=== PATIENT | female | born 1975 | race Caucasian/White ===

== ENCOUNTER 2020-01-31 20:41 | Emergency (ER) | payer MEDICAID ==
[2020-01-31] MEDS ORDERED: Take Home: Acetaminophen/HYDROcodone 325-5 MG, 5 Tab Pack PO ONE (21:26)
[2020-01-31] MEDS ORDERED: Take Home: Ondansetron 4 MG Tab.DIS, 2 Tab Pack PO ONE (21:27)
[2020-02-01 01:28] VITALS: BP 142/61; PULSE 84
--- NOTE | 2020-02-01 06:20 | EDM.PDOC ---
ED HPI GENERAL MEDICAL PROBLEM - General Chief Complaint: Flank Pain Stated Complaint: BACK PAIN Time Seen by Provider: 01/31/20 21:23 Source of Information: Reports: Patient History Limitations: Reports: No Limitations - History of Present Illness INITIAL COMMENTS - FREE TEXT/NARRATIVE: Pt. presents to ER with complaints of L sided flank pain. She states that she had lithotripsy performed on her L side earlier this week. She was prescribed a short course of hydrocodone, but states that she is now out. Denies any fever or chills. She states that she is still experiencing some intense L sided flank pain. No hematuria. She complains of nausea and requests something for nausea and vomiting, as this was not prescribed postoperatively. Onset: Today Onset Date: 02/01/20 Quality: Reports: Throbbing Treatments PUBLIC INFORMATION RELATIONS MANAGER: Reports: Other (see below) Other Treatments PUBLIC INFORMATION RELATIONS MANAGER: Hydrocodone Left Flank Pain Pain Score (Numeric/FACES): 8 - Related Data Allergies Allergy/AdvReac Type Severity Reaction Status Date / Time aspirin Allergy Other Verified 02/01/20 01:09 cat dander Allergy Bronchospas Verified 02/01/20 01:09 ms Influenza Virus Vaccines Allergy Hives Verified 02/01/20 01:09 strawberry Allergy Hives Verified 02/01/20 01:09 sulfamethoxazole Allergy Other Verified 02/01/20 01:09 [From Bactrim] trimethoprim [From Bactrim] Allergy Other Verified 02/01/20 01:09 eggs Allergy Hives Uncoded 02/01/20 01:09 Home Meds: Home Meds Amitriptyline [Elavil] 50 mg PO BEDTIME 02/06/18 [History] Calcium Carb/Mag Ox/Zinc Sulf [Wumqyxh-Swpfxwdkp-Ehmz Tablet] 1 tab PO TID 02/06 [History] Carbidopa/Levodopa [Sinemet 25-100 mg Tablet] 1 tab PO QAM 02/06/18 [History] Carbidopa/Levodopa [Sinemet 25-100 mg Tablet] 2 tab PO QPM 02/06/18 [History] Cholecalciferol (Vitamin D3) [Vitamin D3] 2,000 unit PO DAILY 02/06/18 [History] ClonazePAM [KlonoPIN] 3 mg PO BEDTIME 02/06/18 [History] Cyanocobalamin (Vitamin B-12) [Vitamin B-12] 250 mcg PO DAILY 02/06/18 [History] Docusate Sodium [Colace] 300 mg PO BEDTIME 02/06/18 [History] Ferrous Sulfate 325 mg PO BID 02/06/18 [History] Multivitamin [Multivitamins] 1 tab PO DAILY 02/06/18 [History] Omeprazole Magnesium [Prilosec Otc] 20 mg PO BID 02/06/18 [History] Phytonadione [Vitamin K] 100 mcg PO DAILY 02/06/18 [History] SUMAtriptan [Imitrex] 50 mg PO ASDIRECTED PRN 02/06/18 [History] Venlafaxine [Effexor XR] 75 mg PO DAILY 02/06/18 [History] Warfarin [Coumadin] 5 mg PO ASDIRECTED 02/06/18 [History] buPROPion HCl [Wellbutrin Xl] 300 mg PO DAILY 02/06/18 [History] traZODone 100 mg PO BEDTIME 02/06/18 [History] ClonazePAM [KlonoPIN] 0.5 mg PO DAILY PRN 06/25/18 [History] Acetaminophen [Tylenol Extra Strength] 1,000 mg PO Q6H PRN 03/07/19 [History] buPROPion [Wellbutrin SR] 100 mg PO DAILY 03/26/19 [History] tiZANidine [Zanaflex] 4 mg PO TID PRN 30 Days #90 tablet 03/26/19 [Rx] Past Medical History HEENT History: Reports: Impaired Vision Cardiovascular History: Reports: Blood Clots/VTE/DVT, Heart Murmur Respiratory History: Reports: PE Gastrointestinal History: Reports: GERD Genitourinary History: Reports: Renal Calculus, UTI, Recurrent Musculoskeletal History: Reports: Back Pain, Chronic, Other (See Below) Other Musculoskeletal History: Bilateral hip pain Neurological History: Reports: Migraines Psychiatric History: Reports: Anxiety, Depression, Panic Attack Endocrine/Metabolic History: Reports: Obesity/BMI 30+ Hematologic History: Reports: Anticoagulation Therapy Oncologic (Cancer) History: Reports: Uterine Dermatologic History: Reports: Psoriasis - Past Surgical History Head Surgeries/Procedures: Reports: None GI Surgical History: Reports: Bariatric Procedure, Other (See Below) Other GI Surgeries/Procedures: Gastric sleeve then to full gastric bypass Female Surgical History: Reports: Hysterectomy Social & Family History - Family History Cardiac: Reports: Heart Failure, [place] Respiratory: Reports: Sleep Apnea Other GI Family History: obewsity mother, father, sister : Reports: Renal Calculus Psychiatric: Reports: Depression Endocrine/Metabolic: Reports: Diabetes, type II Oncologic: Reports: Ovarian - Tobacco Use Smoking Status *Q: Never Smoker - Recreational Drug Use Recreational Drug Use: No - Living Situation & Occupation Living situation: Reports: Single, with Significant Other (sister) 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.) ED ROS GENERAL - Review of Systems Review Of Systems: See Below Constitutional: Reports: No Symptoms HEENT: Reports: No Symptoms Respiratory: Reports: No Symptoms Cardiovascular: Reports: No Symptoms Endocrine: Reports: No Symptoms GI/Abdominal: Reports: Abdominal Pain : Reports: Flank Pain (L sided) Musculoskeletal: Reports: No Symptoms Skin: Reports: No Symptoms Neurological: Reports: No Symptoms Psychiatric: Reports: No Symptoms Hematologic/Lymphatic: Reports: No Symptoms Immunologic: Reports: No Symptoms ED EXAM, GENERAL - Physical Exam Exam: See Below Exam Limited By: No Limitations General Appearance: Alert, WD/WN, No Apparent Distress Head: Atraumatic, Normocephalic Respiratory/Chest: No Respiratory Distress, Lungs Clear, Normal Breath Sounds, No Accessory Muscle Use GI/Abdominal: Normal Bowel Sounds, Soft, Non-Tender, No Organomegaly, No Distention, No Abnormal Bruit, No Mass, Pelvis Stable Back Exam: Full Range of Motion, CVA Tenderness (L), Other (swelling to L flank gray) Extremities: Normal Inspection, Normal Range of Motion, Non-Tender, No Pedal Edema, Normal Capillary Refill Course - Vital Signs Last Recorded V/S: Last Vital Signs Temp 36.6 C 01/31/20 21:20 Pulse 84 01/31/20 21:20 Resp 16 01/31/20 21:20 BP 142/61 H 01/31/20 21:20 Pulse Ox 96 01/31/20 21:20 - Orders/Labs/Meds Meds: Medications Discontinued Medications Generic Name Dose Route Start Last Admin Trade Name Freq PRN Reason Stop Dose Admin Hydrocodone Bitart/Acetaminophen 1 packet 01/31/20 21:26 01/31/20 21:29 Take Home: Acetam/Hydrocodon 325-5 Mg, 5 Pack PO 01/31/20 21:27 1 packet ONETIME ONE Administration Ondansetron HCl 1 packet 01/31/20 21:27 01/31/20 21:29 Take Home: Ondansetron Odt 4 Mg, 2 Tab Pack PO 01/31/20 21:28 1 packet ONETIME ONE Administration Departure - Departure Time of Disposition: 21:35 Disposition: Home, Self-Care 01 Clinical Impression: Post-op pain - Discharge Information Instructions: Acetaminophen; Hydrocodone tablets or capsules, Ondansetron oral dissolving tablet Referrals: Connie Root MD [Primary Care Provider] - Forms: ED Department Discharge Additional Instructions: [place] 5/325mg 1 tab every 6 hours as needed for pain Zofran 4mg ODT 1 tab every 6 hours Drink lots of water Recheck in clinic next week Sepsis Event Note - Evaluation Sepsis Screening Result: No Definite Risk - Focused Exam Vital Signs: Vital Signs Temp Pulse Resp BP Pulse Ox 01/31/20 21:20 36.6 C 84 16 142/61 H 96 Date Exam was Performed: 02/01/20 Time Exam was Performed: 06:15 - Assessment/Plan Plan: [place] 5/325mg 1 tab every 6 hours as needed for pain Zofran 4mg ODT 1 tab every 6 hours Drink lots of water Recheck in clinic next week
== END 2020-01-31 21:35 | disposition home or self-care (01) ==
LOC: VM.ED 20:41
DX: G89.18 Other acute postprocedural pain (principal); R10.9 Unspecified abdominal pain; Z87.442 Personal history of urinary calculi; Z86.718 Personal history of other venous thrombosis and embolism; K21.9 Gastro-esophageal reflux disease without esophagitis; Z86.711 Personal history of pulmonary embolism; F41.0 Panic disorder [episodic paroxysmal anxiety]; F32.9 Major depressive disorder, single episode, unspecified; Z88.8 Allergy status to other drugs, medicaments and biological substances; Z91.012 Allergy to eggs; Z88.2 Allergy status to sulfonamides; Z88.7 Allergy status to serum and vaccine; Z91.048 Other nonmedicinal substance allergy status; Z91.018 Allergy to other foods; Z79.899 Other long term (current) drug therapy
CPT/HCPCS: 99283; A9270-GY

== ENCOUNTER 2020-05-02 15:06 | Emergency (ER) | payer MEDICAID ==
[2020-05-02] MEDS ORDERED: diphenhydrAMINE 50 MG/ML SDV IVPUSH ONE (15:46)
[2020-05-02] MEDS ORDERED: Ketorolac 30 MG/ML SDV IVPUSH ONE (15:46)
[2020-05-02] MEDS ORDERED: Sodium Chloride 0.9% 10 ML Syringe FLUSH PRN (15:46)
[2020-05-02] MEDS ORDERED: Lactated Ringers 1,000 ML IV ONE (15:46)
--- NOTE | 2020-05-02 15:52 | EDM.PDOC ---
ED HPI GENERAL MEDICAL PROBLEM - General Chief Complaint: Back Pain or Injury Stated Complaint: KIDNEY PAIN Time Seen by Provider: 05/02/20 15:40 Source of Information: Reports: Patient History Limitations: Reports: No Limitations - History of Present Illness INITIAL COMMENTS - FREE TEXT/NARRATIVE: Patient comes emergency department today with complaints of right flank pain. This patient for the last 3 days has had intermittent achiness to her right flank. This morning when she woke up she had severe shooting pain in her right flank that was so severe that took her to the ground. She has been nauseated without vomiting. No fever no chills. No abdominal pain. No gross hematuria no dysuria or urinary frequency. No recent falls or trauma to her back. She does report that she has had recurrent multiple kidney stones in the past that she is received lithotripsy for. She relates that it feels just like her kidney stones in the past. No abdominal pain. No diarrhea or constipation. No chest pain no shortness of breath or difficulty breathing. Right Back Pain Score (Numeric/FACES): 9 - Related Data Allergies Allergy/AdvReac Type Severity Reaction Status Date / Time aspirin Allergy Other Verified 05/02/20 15:15 cat dander Allergy Bronchospas Verified 05/02/20 15:15 ms Influenza Virus Vaccines Allergy Hives Verified 05/02/20 15:15 strawberry Allergy Hives Verified 05/02/20 15:15 sulfamethoxazole Allergy Other Verified 05/02/20 15:15 [From Bactrim] trimethoprim [From Bactrim] Allergy Other Verified 05/02/20 15:15 eggs Allergy Hives Uncoded 02/01/20 01:09 Home Meds: Home Meds Amitriptyline [Elavil] 50 mg PO BEDTIME 02/06/18 [History] Calcium Carb/Mag Ox/Zinc Sulf [Hjjnddq-Fxthcrwwg-Jisp Tablet] 1 tab PO TID 02/06 [History] Carbidopa/Levodopa [Sinemet 25-100 mg Tablet] 1 tab PO QAM 02/06/18 [History] Carbidopa/Levodopa [Sinemet 25-100 mg Tablet] 2 tab PO QPM 02/06/18 [History] Cholecalciferol (Vitamin D3) [Vitamin D3] 2,000 unit PO DAILY 02/06/18 [History] ClonazePAM [KlonoPIN] 3 mg PO BEDTIME 02/06/18 [History] Cyanocobalamin (Vitamin B-12) [Vitamin B-12] 250 mcg PO DAILY 02/06/18 [History] Docusate Sodium [Colace] 300 mg PO BEDTIME 02/06/18 [History] Ferrous Sulfate 325 mg PO BID 02/06/18 [History] Multivitamin [Multivitamins] 1 tab PO DAILY 02/06/18 [History] Omeprazole Magnesium [Prilosec Otc] 20 mg PO BID 02/06/18 [History] Phytonadione [Vitamin K] 100 mcg PO DAILY 02/06/18 [History] SUMAtriptan [Imitrex] 50 mg PO ASDIRECTED PRN 02/06/18 [History] Venlafaxine [Effexor XR] 75 mg PO DAILY 02/06/18 [History] Warfarin [Coumadin] 5 mg PO ASDIRECTED 02/06/18 [History] buPROPion HCL [Wellbutrin Xl] 300 mg PO DAILY 02/06/18 [History] traZODone 100 mg PO BEDTIME 02/06/18 [History] ClonazePAM [KlonoPIN] 0.5 mg PO DAILY PRN 06/25/18 [History] Acetaminophen [Tylenol Extra Strength] 1,000 mg PO Q6H PRN 03/07/19 [History] buPROPion [Wellbutrin SR] 100 mg PO DAILY 03/26/19 [History] tiZANidine [Zanaflex] 4 mg PO TID PRN 30 Days #90 tablet 03/19/20 [Rx] Hydrocodone/Acetaminophen [[place] 5-325 Tablet] 1 each PO Q6H PRN #10 tablet 05/16 [Rx] Past Medical History HEENT History: Reports: Impaired Vision Cardiovascular History: Reports: Blood Clots/VTE/DVT, Heart Murmur Respiratory History: Reports: PE Gastrointestinal History: Reports: GERD Genitourinary History: Reports: Renal Calculus, UTI, Recurrent Other Genitourinary History: Recent UTI due to renal calculous Musculoskeletal History: Reports: Back Pain, Chronic, Other (See Below) Other Musculoskeletal History: Bilateral hip pain Neurological History: Reports: Migraines Psychiatric History: Reports: Anxiety, Depression, Panic Attack Endocrine/Metabolic History: Reports: Obesity/BMI 30+ Hematologic History: Reports: Anticoagulation Therapy Oncologic (Cancer) History: Reports: Uterine Dermatologic History: Reports: Psoriasis - Past Surgical History Head Surgeries/Procedures: Reports: None GI Surgical History: Reports: Bariatric Procedure, Other (See Below) Other GI Surgeries/Procedures: Gastric sleeve then to full gastric bypass Female Surgical History: Reports: Hysterectomy Social & Family History - Family History Cardiac: Reports: Heart Failure, [place] Respiratory: Reports: Sleep Apnea Other GI Family History: obewsity mother, father, sister : Reports: Renal Calculus Psychiatric: Reports: Depression Endocrine/Metabolic: Reports: Diabetes, type II Oncologic: Reports: Ovarian - Tobacco Use Smoking Status *Q: Never Smoker - Recreational Drug Use Recreational Drug Use: No - Living Situation & Occupation Living situation: Reports: Single, with Significant Other (sister) 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 ED EXAM,LOWER BACK PAIN/INJURY - Physical Exam Exam: See Below Exam Limited By: No Limitations General Appearance: Alert, WD/WN, No Apparent Distress, Obese Eye Exam: Bilateral Eye: EOMI Ears: Normal External Exam, Normal TMs Nose: Normal Inspection Throat/Mouth: Normal Inspection, Normal Lips, Normal Oropharynx Head: Atraumatic, Normocephalic Neck: Normal Inspection, Supple Respiratory/Chest: No Respiratory Distress, Lungs Clear, Normal Breath Sounds, No Accessory Muscle Use Cardiovascular: Normal Peripheral Pulses, Regular Rate, Rhythm GI/Abdominal: Normal Bowel Sounds, Soft, Non-Tender, No Organomegaly (Female) Exam: Deferred Rectal (Female) Exam: Deferred Back Exam: Full Range of Motion, CVA Tenderness (R). No: CVA Tenderness (L) Extremities: Normal Inspection, Normal Range of Motion, Normal Capillary Refill Neurological: Alert, Normal Mood/Affect Psychiatric: Normal Affect, Normal Mood Skin Exam: Warm, Dry, Intact, Normal Color, No Rash Course - Vital Signs Last Recorded V/S: Last Vital Signs Temp 36.1 C 05/02/20 15:24 Pulse 80 05/02/20 16:58 Resp 18 05/02/20 16:58 BP 120/62 05/02/20 16:58 Pulse Ox 97 05/02/20 16:58 - Orders/Labs/Meds Orders: Active Orders 24 hr Category Date Time Status CULTURE URINE [RM] Stat Lab 05/02/20 15:27 Received Acetaminophen/oxyCODONE [Take Home: Acetamin/oxyCODON Med 05/02/20 17:51 Once 325-5 MG, 5 Pack] 1 packet PO ONETIME ONE Morphine Med 05/02/20 17:51 Once 4 mg IVPUSH ONETIME ONE Sodium Chloride 0.9% [Saline Flush] Med 05/02/20 15:46 Active 10 ml FLUSH ASDIRECTED PRN Peripheral IV Insertion Adult [OM.PC] Stat Oth 05/02/20 15:45 Ordered Medication Orders Sodium Chloride (Saline Flush) 10 ml FLUSH ASDIRECTED PRN PRN Reason: Keep Vein Open Last Admin: 05/02/20 16:15 Dose: 10 ml Labs: Laboratory Tests 05/02/20 05/02/20 05/02/20 Range/Units 15:27 16:20 16:20 WBC 8.2 (4.0-10.0) x10^3/uL RBC 4.51 (4.00-5.50) x10^6/uL Hgb 12.5 (12.0-16.0) g/dL Hct 39.5 (33.0-47.0) % MCV 87.6 (78.0-93.0) fL MCH 27.7 (26.0-32.0) pg MCHC 31.6 L (32.0-36.0) g/dL RDW Coeff of Jose 14.6 (10.0-15.0) % Plt Count 288 (130-400) x10^3/uL Neut % (Auto) 59.1 (50.0-80.0) % Lymph % (Auto) 32.1 (25.0-50.0) % Winston % (Auto) 6.7 (2.0-11.0) % Eos % (Auto) 1.6 (0.0-4.0) % Baso % (Auto) 0.5 (0.2-1.2) % Sodium 144 (136-145) mmol/L Potassium 4.5 (3.5-5.1) mmol/L Chloride 108 H (98-107) mmol/L Carbon Dioxide 27 (21-32) mmol/L Anion Gap 13.5 (10-20) mmol/L BUN 20 H (7-18) mg/dL Creatinine 0.9 (0.55-1.02) mg/dL Est Cr Clr Drug Dosing 69.60 mL/min Estimated GFR (MDRD) > 60 Glucose 86 (74-106) mg/dL Calcium 8.6 (8.5-10.1) mg/dL Corrected Calcium 8.92 (8.5-10.1) mg/dL Total Bilirubin 0.2 (0.2-1.0) mg/dL AST 21 (15-37) U/L ALT 27 (14-59) U/L Alkaline Phosphatase 77 (46-116) U/L Total Protein 7.3 (6.4-8.2) g/dL Albumin 3.6 (3.4-5.0) g/dL Globulin 3.7 Albumin/Globulin Ratio 0.97 Urine Color Yellow (YELLOW) Urine Appearance Turbid H (CLEAR) Urine pH 5.5 (5.0-8.0) Ur Specific [place] >=1.030 Urine Protein Negative (NEGATIVE) mg/dL Urine Glucose (UA) Negative (NEGATIVE) mg/dL Urine Ketones Negative (NEGATIVE) mg/dL Urine Occult Blood Large H (NEGATIVE) Urine Nitrite Negative (NEGATIVE) Urine Bilirubin Negative (NEGATIVE) Urine Urobilinogen 0.2 (0.2) EU/dL Ur Leukocyte Esterase Trace H (NEGATIVE) U Hyaline Cast (Auto) Few Urine RBC Semi-packed H (NOT SEEN) /HPF Urine WBC 0-5 (NOT SEEN) /HPF Ur Squamous Epith Cells Moderate H (NEGATIVE) /HPF Urine Bacteria Few H (NEGATIVE) /HPF Granular Casts (Auto) Rare Urine Mucus Moderate H (NEGATIVE) /LPF Meds: Medications Generic Name Dose Route Start Last Admin Trade Name Freq PRN Reason Stop Dose Admin Sodium Chloride 10 ml 05/02/20 15:46 05/02/20 16:15 Saline Flush FLUSH 10 ml ASDIRECTED PRN Administration Keep Vein Open Discontinued Medications Generic Name Dose Route Start Last Admin Trade Name Freq PRN Reason Stop Dose Admin Diphenhydramine HCl 25 mg 05/02/20 15:46 05/02/20 16:12 Benadryl IVPUSH 05/02/20 15:47 25 mg ONETIME ONE Administration Lactated Ringer's 1,000 mls @ 999 mls/hr 05/02/20 15:46 05/02/20 16:11 Ringers, Lactated IV 05/02/20 16:46 999 mls/hr ONETIME ONE Administration Ketorolac Tromethamine 30 mg 05/02/20 15:46 05/02/20 16:20 Toradol IVPUSH 05/02/20 15:47 30 mg ONETIME ONE Administration Orphenadrine Citrate 60 mg 05/02/20 15:46 05/02/20 16:16 Norflex IV 05/02/20 15:47 60 mg NOW STA Administration - Radiology Interpretation Free Text/Narrative:: CT scan abdomen pelvis without contrast per radiology shows bilateral nonobstructing renal calculi. Numerous bilateral nonobstructing renal calculi. Largest is up to 4 to 5 mm and located in the left. No significant change from prior examination. No ureteral calculi or evidence of urinary tract obstruction. - Re-Assessments/Exams Free Text/Narrative Re-Assessment/Exam: 05/02/20 15:51 IV LR 1 liter wide open Ketorolac 30mg IV Benadryl 25mg IVP Norflex 60mg IV CT abd pelvis without contrast looking for a stone. Her urine is packed with RBCs. 05/02/20 18:00 Patient's pain was much improved after the above. I reviewed the CT scan showing the reoccurrence of kidney stones bilaterally thought the evidence of ureteral calculi or obstructing stone. We will have her contact her urologist on Monday for follow-up his CT scan is already been sent. Discharge directions as below are explained to the patient. She was comfortable with this plan and her questions are answered. Departure - Departure Time of Disposition: 17:52 Disposition: Home, Self-Care 01 Clinical Impression: Nephrolithiasis - Discharge Information Instructions: Renal Colic, [id number], Kidney Stones, [id number]-[id number], Pain Medicine Instructions, [id number] Forms: ED Department Discharge Additional Instructions: Try to really push fluids to help with treatment and prevention of the stones as well. Tylenol and or Ibuprofen as needed for pain. Contact Dr. Mariscal on monday and let him know about the reoccurrence of the stones. I did send the CT scan for his review as well. If pain not controlled with above. [place], 1 tablet every 6hrs as needed for pain. Caution sedation. Starter pack of 5 sent home from the ED and RX to [facility] electronically. Return to the ED if new or worsening symptoms. Sepsis Event Note - Evaluation Sepsis Screening Result: No Definite Risk - Focused Exam Vital Signs: Vital Signs Temp Pulse Resp BP Pulse Ox 05/02/20 16:58 80 18 120/62 97 05/02/20 15:24 36.1 C 85 16 149/80 H 99 Date Exam was Performed: 05/02/20 Time Exam was Performed: 17:52 - My Orders Last 24 Hours: My Active Orders 05/02/20 15:27 CULTURE URINE [RM] Stat 05/02/20 15:45 Peripheral IV Insertion Adult [OM.PC] Stat 05/02/20 15:46 Sodium Chloride 0.9% [Saline Flush] 10 ml FLUSH ASDIRECTED PRN 05/02/20 17:51 Acetaminophen/oxyCODONE [Take Home: Acetamin/oxyCODON 325-5 MG, 5 Pack] 1 packet PO ONETIME ONE Morphine 4 mg IVPUSH ONETIME ONE - Assessment/Plan Last 24 Hours: My Active Orders 05/02/20 15:27 CULTURE URINE [RM] Stat 05/02/20 15:45 Peripheral IV Insertion Adult [OM.PC] Stat 05/02/20 15:46 Sodium Chloride 0.9% [Saline Flush] 10 ml FLUSH ASDIRECTED PRN 05/02/20 17:51 Acetaminophen/oxyCODONE [Take Home: Acetamin/oxyCODON 325-5 MG, 5 Pack] 1 packet PO ONETIME ONE Morphine 4 mg IVPUSH ONETIME ONE Assessment:: Bilateral nephrolithiasis. Recurrent kidney stones. Plan: Try to really push fluids to help with treatment and prevention of the stones as well. Tylenol and or Ibuprofen as needed for pain. Contact Dr. Mariscal on monday and let him know about the reoccurrence of the stones. I did send the CT scan for his review as well. If pain not controlled with above. [place], 1 tablet every 6hrs as needed for pain. Caution sedation. Starter pack of 5 sent home from the ED and RX to [facility] electronically. Return to the ED if new or worsening symptoms.
[2020-05-02 17:11] LABS: ANION GAP 13.5 mmol/L (10-20); CHLORIDE,CL 108 mmol/L (98-107); SODIUM,NA 144 mmol/L (136-145)
--- NOTE | 2020-05-02 17:44 | CT ---
[id number] CT/CT Abdomen Pelvis WO IV EXAM: CT Abdomen Pelvis WO IV CLINICAL DATA: FLANK PAIN, HEMATURIA. COMPARISON STUDY: January 02, 2020. FINDINGS: Liver demonstrates changes of diffuse steatosis. Gallbladder is distended but otherwise radiographically unremarkable. Common bile duct appears normal in caliber. Pancreas, spleen, and adrenal glands are unremarkable. Numerous bilateral nonobstructing renal calculi. Largest measures up to 4-5 mm and is located on the left. No significant change from the prior examination. No ureteral calculi or evidence of urinary tract obstruction. Urinary bladder is decompressed but otherwise unremarkable. Uterus is been resected. Adnexal regions are unremarkable. Postsurgical change from what appears to be gastric bypass. No small bowel obstruction or inflammation. No colitis or diverticulitis. Spondylosis, including advanced L5-S1 degenerative disc disease. IMPRESSION: Bilateral nonobstructing renal calculi. No ureteral calculi or evidence of urinary tract obstruction. Urinary bladder is unremarkable. Other chronic findings are described above. Kevin Schwartz MD 05/02/20 [id number] Thank you for allowing us to participate in the care of your patient.
[2020-05-02] MEDS ORDERED: Take Home: Acetaminophen/oxyCODONE 325-5 MG, 5 Tab Pack PO ONE (17:51)
[2020-05-02] MEDS ORDERED: Morphine 4 MG/ML Syringe IVPUSH ONE (17:51)
[2020-05-02 18:20] VITALS: BP 126/66; PULSE 70
== END 2020-05-02 18:20 | disposition home or self-care (01) ==
LOC: VM.ED 15:06
DX: N20.0 Calculus of kidney (principal); K21.9 Gastro-esophageal reflux disease without esophagitis; F41.0 Panic disorder [episodic paroxysmal anxiety]; F32.9 Major depressive disorder, single episode, unspecified; E66.9 Obesity, unspecified; Z68.43 Body mass index [BMI] 50.0-59.9, adult; Z88.6 Allergy status to analgesic agent; Z88.7 Allergy status to serum and vaccine; Z88.2 Allergy status to sulfonamides; Z91.018 Allergy to other foods; Z91.048 Other nonmedicinal substance allergy status; Z88.1 Allergy status to other antibiotic agents; Z91.012 Allergy to eggs; Z79.899 Other long term (current) drug therapy; Z86.711 Personal history of pulmonary embolism
CPT/HCPCS: 74176; 80053; 81001; 85025; 87086; 96374; 96375; 99284-25; A9270-GY; J1200; J1885; J2270; J2360; J7120

== ENCOUNTER 2021-02-12 09:03 | Day surgery (SDC) | payer MEDICAID ==
[~2021-02-12 09:03] MED LIST: Bupivacaine 0.25%/EPINEPHrine 1:200,000 30 ML SDV ONE; Lactated Ringers 1,000 ML IV SCH; Sodium Chloride 0.9% 10 ML Syringe FLUSH PRN
[2021-02-12] MEDS ORDERED: fentaNYL 100 MCG/2 ML SDV ONE (09:36)
[2021-02-12] MEDS ORDERED: Propofol 200 MG/20 ML SDV ONE ×2 (09:36→10:53)
[2021-02-12] MEDS ORDERED: Bupivacaine 0.25%/EPINEPHrine 1:200,000 30 ML SDV INJECT ONE ×2 (10:45)
[2021-02-12 11:41] VITALS: BP 125/69; PULSE 68
[2021-02-12] MEDS ORDERED: Acetaminophen 500 MG Tab PO PRN (11:43)
--- NOTE | 2021-02-12 12:30 | OR ---
PREOPERATIVE DIAGNOSIS: Left abdominal wall soft tissue mass. POSTOPERATIVE DIAGNOSIS: Left abdominal wall soft tissue cyst, 7.5 cm in greatest dimension. ANESTHESIA: MAC anesthesia. COMPLICATIONS: None. BLOOD LOSS: Minimal. FINDINGS: There was a subcutaneous cyst in the area in question which was excised. The size of specimen was measured at 7.5 cm. INDICATION FOR PROCEDURE: Ms. Stone is a 45-year-old female who has had a painful area on her left anterior abdominal wall for some time now. On exam, there was a subtle firmness there. However, it was really not clear if she had a little lipoma here or what might be causing her issues. I did discuss with her that it was unclear if excision of this area would yield a meaningful reduction in her symptoms. However, she was distressed by this discomfort and wanted to proceed understanding these risks. DETAILS OF PROCEDURE: Informed consent was obtained. The patient was brought to the operating room, placed supine on the operating table. MAC anesthesia was induced by Anesthesia colleagues. She was prepped and draped in the usual fashion. Local anesthetic was infiltrated and then an incision was made over the area in question. We dissected out this area and actually I had anticipated this was going to be a soft tissue mass. However, during our dissection, we actually entered a cyst and had return of some dark yellow granular material. It did not appear purulent or infected, so we put a hemostat into this cyst and could see that it extended down several centimeters deep into the tissue. We used this as a guide and we excised it in its entirety without any additional violation of the cyst. This was passed off for pathology. The wound was copiously irrigated with saline and the subcutaneous site was closed with a 3-0 Vicryl. We placed several 3-0 Vicryl deep dermal sutures and then closed the skin with a running 4-0 Vicryl subcuticular stitch. The area was dressed with Dermabond. The patient tolerated the procedure well and was awoken from anesthesia by Anesthesia colleagues without incident. I will send a letter in the mail with the pathology report and she can call me with any questions or concerns about her incision. RKM: 02/12/2021 11:16:05 MODL: 02/12/2021 11:47:42 /[id number]
--- NOTE | 2021-02-18 08:06 | LETTER ---
02/16/2021 RE: MARY MARY : 1975 Mary Mary [address] [place] [phone] Dear Ms. Mary: I am writing to inform you of the pathology result from your recent abdominal wall mass excision. The pathology was consistent with a longstanding cyst caused by hematoma. It may be that this was from a Lovenox shot some time ago or some trauma that caused a little bit of bleeding. There was no evidence of any cancer or anything more concerning. You do not need any additional followup for this. Please let me know if you have any questions or concerns about your incision. Warmest regards,
== END 2021-02-12 12:15 | disposition home or self-care (01) ==
LOC: VM.SDS 09:03
PROVIDERS: ATTEND Student in an Organized Health Care Education/Training Program
DX: L72.8 Other follicular cysts of the skin and subcutaneous tissue (principal); E66.9 Obesity, unspecified; Z68.43 Body mass index [BMI] 50.0-59.9, adult; G47.30 Sleep apnea, unspecified; Z01.812 Encounter for preprocedural laboratory examination; Z20.822 Contact with and (suspected) exposure to COVID-19; Z88.2 Allergy status to sulfonamides; Z88.7 Allergy status to serum and vaccine; Z88.8 Allergy status to other drugs, medicaments and biological substances; Z91.012 Allergy to eggs; Z91.018 Allergy to other foods; Z91.09 Other allergy status, other than to drugs and biological substances; Z79.899 Other long term (current) drug therapy; Z98.84 Bariatric surgery status; Z98.890 Other specified postprocedural states
CPT/HCPCS: 00400; 36415; 85610; A9270-GY; J2704; J3010; J7120; U0002

== ENCOUNTER 2021-02-13 18:15 | Emergency (ER) | payer MEDICAID ==
[2021-02-13] MEDS ORDERED: Morphine 2 MG/ML SYRINGE IVPUSH ONE (19:49)
[2021-02-13 20:20] VITALS: BP 131/51; PULSE 90
[2021-02-13 20:27] LABS: CHLORIDE,CL 106 mmol/L (98-107); SODIUM,NA 142 mmol/L (136-145)
[2021-02-13 20:29] LABS: ANION GAP 11.9 mmol/L (5-15)
[2021-02-13] MEDS ORDERED: Cephalexin 500 MG Cap PO ONE (20:40)
[2021-02-13] MEDS ORDERED: Take Home: traMADol 50 MG, 4 Tab Pack PO ONE (20:41)
--- NOTE | 2021-02-13 20:49 | EDM.PDOC ---
ED HPI GENERAL MEDICAL PROBLEM - General Chief Complaint: Abdominal Pain Stated Complaint: PAIN/POST SURGERY Time Seen by Provider: 02/13/21 19:30 Source of Information: Reports: Patient, Family, RN, RN Notes Reviewed History Limitations: Reports: No Limitations - History of Present Illness INITIAL COMMENTS - FREE TEXT/NARRATIVE: Patient is a 45-year-old female who presents to ER with her sister with complaint of severe pain to an incisional wound on her abdomen. Patient states on Monday (yesterday) patient had a cyst removed, what she calls a "mass and ". Patient states the pain has progressively been increasing since yesterday. She has been taking Tylenol for pain and this is not helping. Admits to chills and nausea, some shortness of breath as she feels it is difficult to take a deep breathe with the pain. Denies fever, vomiting, diarrhea, chest pains. Patient states she was tested on Monday for Covid, has not had any Covid symptoms, has not been vaccinated. Patient rates pain 08/06. Onset: Today, Gradual Treatments QUALITY ASSOCIATE: Reports: Acetaminophen Left Abdominal Pain Score (Numeric/FACES): 9 - Related Data Allergies Allergy/AdvReac Type Severity Reaction Status Date / Time aspirin Allergy Other Verified 02/12/21 10:08 cat dander Allergy Bronchospas Verified 02/12/21 10:08 ms Influenza Virus Vaccines Allergy Hives Verified 02/12/21 10:08 strawberry Allergy Hives Verified 02/12/21 10:08 sulfamethoxazole Allergy Other Verified 02/12/21 10:08 [From Bactrim] trimethoprim [From Bactrim] Allergy Other Verified 02/12/21 10:08 eggs Allergy Hives Uncoded 02/12/21 10:08 Home Meds: Home Meds Amitriptyline [Elavil] 50 mg PO BEDTIME 02/06/18 [History] Calcium Carb/Mag Ox/Zinc Sulf [Yakyyat-Mvtaxukpg-Aiwu Tablet] 1 tab PO TID 02/06/18 [History] Carbidopa/Levodopa [Sinemet 25-100 mg Tablet] 1 tab PO QAM 02/06/18 [History] Carbidopa/Levodopa [Sinemet 25-100 mg Tablet] 2 tab PO QPM 02/06/18 [History] Cholecalciferol (Vitamin D3) [Vitamin D3] 2,000 unit PO DAILY 02/06/18 [History] ClonazePAM [KlonoPIN] 3 mg PO BEDTIME 02/06/18 [History] Cyanocobalamin (Vitamin B-12) [Vitamin B-12] 250 mcg PO DAILY 02/06/18 [History] Docusate Sodium [Colace] 300 mg PO BEDTIME 02/06/18 [History] Ferrous Sulfate 325 mg PO BID 02/06/18 [History] Multivitamin [Multivitamins] 1 tab PO DAILY 02/06/18 [History] Omeprazole Magnesium [Prilosec Otc] 20 mg PO BID 02/06/18 [History] Phytonadione [Vitamin K] 100 mcg PO DAILY 02/06/18 [History] SUMAtriptan [Imitrex] 50 mg PO ASDIRECTED PRN 02/06/18 [History] Venlafaxine [Effexor XR] 75 mg PO DAILY 02/06/18 [History] Warfarin [Coumadin] 5 mg PO ASDIRECTED 02/06/18 [History] traZODone 100 mg PO BEDTIME 02/06/18 [History] ClonazePAM [KlonoPIN] 0.5 mg PO DAILY PRN 06/25/18 [History] Acetaminophen [Tylenol Extra Strength] 1,000 mg PO Q6H PRN 03/07/19 [History] tiZANidine [Zanaflex] 4 mg PO TID PRN 30 Days #90 tablet 11/23/20 [Rx] Acetaminophen/Codeine [Tylenol with Codeine No.3 300MG/30MG] 1 tab PO Q4H PRN 02/04/21 [History] Acetaminophen/Pyrilamine/Caff [Midol Caplet] 1 each PO DAILY PRN 02/04/21 [History] Acetaminophen/Codeine [Tylenol with Codeine No.3 300MG/30MG] 1 tab PO Q4H PRN 5 Days #20 tab 02/05/21 [Rx] Past Medical History HEENT History: Reports: Impaired Vision Cardiovascular History: Reports: Blood Clots/VTE/DVT, Heart Murmur Respiratory History: Reports: PE Gastrointestinal History: Reports: GERD Genitourinary History: Reports: Renal Calculus, UTI, Recurrent Other Genitourinary History: Recent UTI due to renal calculous Musculoskeletal History: Reports: Back Pain, Chronic, Other (See Below) Other Musculoskeletal History: Bilateral hip pain Neurological History: Reports: Migraines Psychiatric History: Reports: Anxiety, Depression, Panic Attack Endocrine/Metabolic History: Reports: Obesity/BMI 30+ Hematologic History: Reports: Anticoagulation Therapy Oncologic (Cancer) History: Reports: Uterine Dermatologic History: Reports: Psoriasis - Past Surgical History Head Surgeries/Procedures: Reports: None GI Surgical History: Reports: Bariatric Procedure, Other (See Below) Other GI Surgeries/Procedures: Gastric sleeve then to full gastric bypass Female Surgical History: Reports: Hysterectomy Social & Family History - Family History Family Medical History: No Pertinent Family History Cardiac: Reports: Heart Failure, [place] Respiratory: Reports: Sleep Apnea Other GI Family History: obewsity mother, father, sister : Reports: Renal Calculus Psychiatric: Reports: Depression Endocrine/Metabolic: Reports: Diabetes, type II Oncologic: Reports: Ovarian - Tobacco Use Tobacco Use Status *Q: Never Tobacco User Second Hand Smoke Exposure: No - Recreational Drug Use Recreational Drug Use: No - Living Situation & Occupation Living situation: Reports: Single, with Significant Other (sister) 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 ED EXAM, SKIN/RASH Exam: See Below Exam Limited By: No Limitations General Appearance: Alert, WD/WN, No Apparent Distress, Obese Eye Exam: Bilateral Eye: EOMI, Normal Inspection Ears: Normal External Exam, Hearing Grossly Normal Nose: Normal Inspection Throat/Mouth: Normal Inspection, Normal Voice, No Airway Compromise Head: Atraumatic, Normocephalic Neck: Normal Inspection, Supple, Non-Tender, Full Range of Motion Respiratory/Chest: No Respiratory Distress, Lungs Clear, Normal Breath Sounds, No Accessory Muscle Use, Chest Non-Tender Cardiovascular: Normal Peripheral Pulses, Regular Rate, Rhythm, No Edema, No Gallop, No JVD, No Murmur, No Rub Peripheral Pulses: 2+: Radial (L), Radial (R) GI/Abdominal: Normal Bowel Sounds, Soft, Tender (at incision site) (Female) Exam: Deferred Rectal (Female) Exam: Deferred Back Exam: Normal Inspection, Full Range of Motion, NT Extremities: Normal Inspection, Normal Range of Motion, Non-Tender, No Pedal Edema, Normal Capillary Refill Neurological: Alert, Oriented, CN II-XII Intact, Normal Cognition, Normal Gait, Normal Reflexes, No Motor/Sensory Deficits Psychiatric: Normal Affect, Normal Mood Skin: Warm, Dry, Erythema, Increased Warmth, Wound/Incision (incision site approx 4cm, with erythema, orange peel appearance around the wound) Location, Skin: Abdomen Characteristics: Erythematous Associated features: Warmth, Tenderness, Swelling, Inflammation Lymphatic: No Adenopathy Course - Vital Signs Last Recorded V/S: Last Vital Signs Temp 97.8 F 02/13/21 18:50 Pulse 90 02/13/21 18:50 Resp 24 H 02/13/21 18:50 BP 131/51 L 02/13/21 18:50 Pulse Ox 91 L 02/13/21 18:50 - Orders/Labs/Meds Orders: Active Orders 24 hr Category Date Time Status CULTURE BLOOD [BC] Stat Lab 02/13/21 20:00 Received cephALEXin [Take Home: Cephalexin 500 MG, 4 Cap Pack] Med 02/13/21 21:49 Once 1 packet PO ONETIME ONE Blood Culture x2 Reflex Set [OM.PC] Stat Oth 02/13/21 19:37 Ordered Labs: Laboratory Tests 02/13/21 02/13/21 02/13/21 Range/Units 20:00 20:00 20:00 WBC 7.2 (4.0-10.0) x10^3/uL RBC 4.67 (4.00-5.50) x10^6/uL Hgb 12.8 (12.0-16.0) g/dL Hct 40.3 (33.0-47.0) % MCV 86.3 (78.0-93.0) fL MCH 27.4 (26.0-32.0) pg MCHC 31.8 L (32.0-36.0) g/dL RDW Coeff of Jose 14.8 (10.0-15.0) % Plt Count 256 (130-400) x10^3/uL Add Manual Diff Yes Neutrophils % (Manual) 56 (50-80) % Band Neutrophils % 1 (0-6) % Lymphocytes % (Manual) 29 (25-50) % Reactive Lymphs % 7 H (0) % Monocytes % (Manual) 5 (2-11) % Eosinophils % (Manual) 2 (0-4) % Platelet Estimate Adequate Sodium 142 (136-145) mmol/L Potassium 3.9 (3.5-5.1) mmol/L Chloride 106 (98-107) mmol/L Carbon Dioxide 28 (21-32) mmol/L Anion Gap 11.9 (5-15) mmol/L BUN 16 (7-18) mg/dL Creatinine 0.8 (0.55-1.02) mg/dL Est Cr Clr Drug Dosing 75.01 mL/min Estimated GFR (MDRD) > 60 Glucose 99 (74-106) mg/dL Lactic Acid 1.0 (0.4-2.0) mmol/L Calcium 8.7 (8.5-10.1) mg/dL Corrected Calcium 9.18 (8.5-10.1) mg/dL Total Bilirubin 0.2 (0.2-1.0) mg/dL AST 22 (15-37) U/L ALT 40 (14-59) U/L Alkaline Phosphatase 72 (46-116) U/L C-Reactive Protein 0.9 (<=0.9) mg/dL Total Protein 7.1 (6.4-8.2) g/dL Albumin 3.4 (3.4-5.0) g/dL Globulin 3.7 Albumin/Globulin Ratio 0.92 Meds: Medications Discontinued Medications Generic Name Dose Route Start Last Admin Trade Name Harriet PRN Reason Stop Dose Admin Cephalexin 500 mg 02/13/21 20:40 02/13/21 21:03 Cephalexin 500 Mg Cap PO 02/13/21 20:41 500 mg ONETIME ONE Administration Morphine Sulfate 2 mg 02/13/21 19:49 02/13/21 21:03 Morphine 2 Mg/Ml Syringe IVPUSH 02/13/21 19:50 2 mg ONETIME ONE Administration Tramadol HCl 1 packet 02/13/21 20:41 Take Home: Tramadol 50 Mg, 4 Tab Pack PO 02/13/21 20:42 ONETIME ONE - Re-Assessments/Exams Free Text/Narrative Re-Assessment/Exam: 02/13/21 20:51 Discussed lab results with the patient. I informed the patient I did not feel a CT was necessary at this time as her white blood count is normal, lactic is normal. Discussed treating with antibiotics and giving some pain meds to get through the weekend and for her to follow-up with her primary care provider on Monday. Patient and sister agree with plan, verbalized understanding. Departure - Departure Time of Disposition: 21:50 Disposition: Home, Self-Care 01 Condition: Fair Clinical Impression: Cellulitis Qualifiers: Site of cellulitis: trunk Site of cellulitis of trunk: abdominal wall Qualified Code(s): L03.311 - Cellulitis of abdominal wall - Discharge Information *PRESCRIPTION DRUG MONITORING PROGRAM REVIEWED*: No *COPY OF PRESCRIPTION DRUG MONITORING REPORT IN PATIENT CAROLE: No Instructions: Cellulitis, Adult, [id number] Referrals: Connie Root MD [Primary Care Provider] - Forms: ED Department Discharge Additional Instructions: RX: Cephalexin 500mg orally 4 times daily for 10 days RX: Tramadol 50mg orally once every 4-6 hours as needed for pain Follow up with your primary care facility on Monday May continue to use Tylenol as directed for pain Sepsis Event Note (ED) - Evaluation Sepsis Screening Result: No Definite Risk - Focused Exam Vital Signs: Vital Signs Temp Pulse Resp BP Pulse Ox 02/13/21 18:50 97.8 F 90 24 H 131/51 L 91 L - My Orders Last 24 Hours: My Active Orders 02/13/21 19:37 Blood Culture x2 Reflex Set [OM.PC] Stat 02/13/21 20:00 CULTURE BLOOD [BC] Stat 02/13/21 21:49 cephALEXin [Take Home: Cephalexin 500 MG, 4 Cap Pack] 1 packet PO ONETIME ONE - Assessment/Plan Last 24 Hours: My Active Orders 02/13/21 19:37 Blood Culture x2 Reflex Set [OM.PC] Stat 02/13/21 20:00 CULTURE BLOOD [BC] Stat 02/13/21 21:49 cephALEXin [Take Home: Cephalexin 500 MG, 4 Cap Pack] 1 packet PO ONETIME ONE
[2021-02-13] MEDS ORDERED: Take Home: Cephalexin 500 MG Cap, 4 Cap Pack PO ONE (21:49)
== END 2021-02-13 21:50 | disposition home or self-care (01) ==
LOC: VM.ED 18:15
DX: L03.311 Cellulitis of abdominal wall (principal); K21.9 Gastro-esophageal reflux disease without esophagitis; E66.9 Obesity, unspecified; Z68.43 Body mass index [BMI] 50.0-59.9, adult; Z86.711 Personal history of pulmonary embolism; Z79.01 Long term (current) use of anticoagulants; Z88.8 Allergy status to other drugs, medicaments and biological substances; Z91.048 Other nonmedicinal substance allergy status; Z88.7 Allergy status to serum and vaccine; Z91.018 Allergy to other foods; Z88.2 Allergy status to sulfonamides; Z88.1 Allergy status to other antibiotic agents; Z91.012 Allergy to eggs; Z79.899 Other long term (current) drug therapy
CPT/HCPCS: 36415; 80053; 83605; 85025; 86140; 87040; 96374; 99283-25; 99284; A9270-GY; J2270

== ENCOUNTER 2021-12-08 11:30 | Emergency (ER) | payer BC ==
[2021-12-08] MEDS ORDERED: Sodium Chloride 0.9% 10 ML Syringe FLUSH PRN (12:13)
[2021-12-08] MEDS ORDERED: Orphenadrine 60 MG/2 ML Inj IV STA (12:13)
[2021-12-08] MEDS ORDERED: diphenhydrAMINE 50 MG/ML SDV IVPUSH ONE (12:13)
[2021-12-08] MEDS ORDERED: Lactated Ringers 1,000 ML IV ONE (12:13)
[2021-12-08] MEDS ORDERED: Ketorolac 30 MG/ML SDV IVPUSH ONE (12:13)
[2021-12-08 13:06] LABS: CHLORIDE,CL 105 mmol/L (98-107); SODIUM,NA 143 mmol/L (136-145)
[2021-12-08 13:09] LABS: ANION GAP 15.5 mmol/L (5-15)
[2021-12-08 13:18] LABS: PTT,PARTIAL THROMBOPLSTIN TIME 36.6 SEC (25.6-32.8)
[2021-12-08 14:15] VITALS: BP 139/75; PULSE 78
== END 2021-12-08 14:24 | disposition home or self-care (01) ==
LOC: VM.ED 11:30
DX: N13.2 Hydronephrosis with renal and ureteral calculous obstruction (principal); K21.9 Gastro-esophageal reflux disease without esophagitis; E66.9 Obesity, unspecified; Z88.7 Allergy status to serum and vaccine; Z91.018 Allergy to other foods; Z91.09 Other allergy status, other than to drugs and biological substances; Z91.012 Allergy to eggs; Z88.1 Allergy status to other antibiotic agents; Z88.8 Allergy status to other drugs, medicaments and biological substances; Z79.899 Other long term (current) drug therapy; Z79.01 Long term (current) use of anticoagulants; Z68.30 Body mass index [BMI] 30.0-30.9, adult
CPT/HCPCS: 74176; 80053; 85025; 85610; 85730; 96374; 96375; 99284-25; J1200; J1885; J2360; J7120

== ENCOUNTER 2022-02-04 08:46 | Emergency (ER) | payer MEDICAID ==
[2022-02-04] MEDS ORDERED: Ketorolac 30 MG/ML SDV IM ONE (09:03)
[2022-02-04] MEDS ORDERED: Orphenadrine 60 MG/2 ML Inj IM ONE (09:03)
[2022-02-04] MEDS ORDERED: Morphine 10 MG/ML SDV IM ONE (10:48)
[2022-02-04] MEDS ORDERED: Sodium Chloride 0.9% 10 ML Syringe FLUSH PRN (11:12)
[2022-02-04] MEDS ORDERED: Iopamidol 755 Mg/ML 100 ML Bottle IVPUSH ONE (11:30)
[2022-02-04 11:38] LABS: CHLORIDE,CL 107 mmol/L (98-107); SODIUM,NA 142 mmol/L (136-145)
[2022-02-04 11:39] LABS: ANION GAP 11.3 mmol/L (5-15)
[2022-02-04 21:23] VITALS: BP 104/62; PULSE 68
== END 2022-02-04 13:20 | disposition home or self-care (01) ==
LOC: VM.ED 08:46
DX: S20.211A Contusion of right front wall of thorax, initial encounter (principal); M25.511 Pain in right shoulder; D68.9 Coagulation defect, unspecified; K21.9 Gastro-esophageal reflux disease without esophagitis; E66.9 Obesity, unspecified; Z68.43 Body mass index [BMI] 50.0-59.9, adult; Z79.899 Other long term (current) drug therapy; W00.9XXA Unspecified fall due to ice and snow, initial encounter
CPT/HCPCS: 71101-RT; 71275; 73030-RT; 80048; 85610; 96372; 99284; 99284-25; J1885; J2270; J2360; Q9967

== ENCOUNTER 2022-02-22 23:32 | Emergency (ER) | payer MEDICAID ==
[2022-02-22 23:47] VITALS: BP 148/79; PULSE 82
[2022-02-23] MEDS ORDERED: Take Home: Acetaminophen/HYDROcodone 325-5 MG, 5 Tab Pack PO ONE (00:26)
== END 2022-02-23 00:55 | disposition home or self-care (01) ==
LOC: VM.ED 23:32
DX: R07.81 Pleurodynia (principal); K21.9 Gastro-esophageal reflux disease without esophagitis; E66.9 Obesity, unspecified; Z68.43 Body mass index [BMI] 50.0-59.9, adult; Z88.7 Allergy status to serum and vaccine; Z91.012 Allergy to eggs; Z88.1 Allergy status to other antibiotic agents; Z88.8 Allergy status to other drugs, medicaments and biological substances; Z79.899 Other long term (current) drug therapy
CPT/HCPCS: 71101-RT; 99283; 99283-25; A9270-GY

== ENCOUNTER 2024-01-04 10:08 | Day surgery (SDC) | payer MEDICAID ==
[~2024-01-04 10:08] MED LIST changes: +ACETAMINOPHEN PO PRN; -Bupivacaine 0.25%/EPINEPHrine 1:200,000 30 ML SDV ONE; +CODEINE PO PRN; -Sodium Chloride 0.9% 10 ML Syringe FLUSH PRN; +[UNRECOGNIZED DRUG - OTHER] PO PRN
[2024-01-04] MEDS: Lactated Ringers 1,000 ML IV SCH (10:36)
[2024-01-04] MEDS ORDERED: Propofol 200 MG/20 ML SDV ONE ×3 (12:46→13:34)
[2024-01-04] MEDS ORDERED: fentaNYL 100 MCG/2 ML SDV ONE (12:46)
[2024-01-04 14:19] VITALS: BP 126/69; PULSE 66
== END 2024-01-04 14:58 | disposition home or self-care (01) ==
LOC: VM.SDS 10:08
PROVIDERS: ATTEND Family Medicine
DX: K59.09 Other constipation (principal); K21.9 Gastro-esophageal reflux disease without esophagitis; F32.A Depression, unspecified; F41.9 Anxiety disorder, unspecified; F41.0 Panic disorder [episodic paroxysmal anxiety]; E66.9 Obesity, unspecified; Z68.43 Body mass index [BMI] 50.0-59.9, adult; Z86.16 Personal history of COVID-19; Z87.891 Personal history of nicotine dependence; Z79.899 Other long term (current) drug therapy; Z98.890 Other specified postprocedural states
CPT/HCPCS: 45378; J2704; J3010; J7120; 00811